=== PATIENT | male | born 1975 | race Caucasian/White ===

== ENCOUNTER 2024-09-12 14:14 | Emergency (ER) | payer OTHER ==
[~2024-09-12] VITALS: Ht 180.3 cm; Wt 90.7 kg
[2024-09-12] MEDS ORDERED: KETOROLAC TROMETHAMINE 30 MG INJ ONE (15:28)
[2024-09-12] MEDS ORDERED: OXYCODONE/APAP 5-325 MG TABLET ONE (15:28)
[2024-09-12] MEDS: KETOROLAC TROMETHAMINE 30 MG INJ IM ONE (15:29)
[2024-09-12] MEDS: OXYCODONE/APAP 5-325 MG TABLET PO ONE (15:29)
[2024-09-12] MEDS ORDERED: HYDR-3980 PO (17:13)
[2024-09-12 17:21] VITALS: BP 130/80; O2SAT 98
== END 2024-09-12 17:23 | disposition home or self-care (01) ==
LOC: ER 14:14
DX: S46.812A Strain of other muscles, fascia and tendons at shoulder and upper arm level, left arm, initial encounter (principal); E78.5 Hyperlipidemia, unspecified; F32.A Depression, unspecified; X58.XXXA Exposure to other specified factors, initial encounter; Y93.89 Activity, other specified; Y92.89 Other specified places as the place of occurrence of the external cause; Y99.8 Other external cause status
CPT/HCPCS: 99283; 73030; 96372; J1885; A4606; A4663